=== PATIENT | female | born 1985 | race Caucasian/White ===

== ENCOUNTER → 2016-04-03 | Day surgery (SDC) | payer OTHER ==
[~2016-04-03] VITALS: Ht 165.1 cm; Wt 79.4 kg
[~2016-04-03] MED LIST: AMPICILLIN TRI500 MG PO; CELEXA20 M1 PO; CLONAZEPAM0.5 M2 PO; LABETALOL HCL100 M1 PO; OXYCODONE HCL5 M1 PO
--- NOTE | 2016-04-04 04:15 | Operative Report ---
Operative/Inv Procedure Report Surgery Date: 04/03/16 Name of Procedure: CYSTO: HYDRODISTENSION: LEFT RETROGRADE PYELO-LEFT FLEX URETEROSCOPY: LEFT STENT PLACEMENT WITH FLUOROSCOPY Pre-Operative Diagnosis: LEFT COLIC: PELVIC PAIN-INTERSTITIAL CYSTITIS FLARE Post-Operative Diagnosis: SAME Estimated Blood Loss: scant Surgeon/Emr Trainer: SIMON MEZA MD Anesthesia: laryngeal mask airway Complications: NONE Operative/Procedure Note Note: The patient was taken to the operative room and placed on the OR table in supine position. Timeout was performed in order to confirm the patient's identity, procedure, anesthesia, antibiotics, as well as any other pertinent information. After adequate anesthesia, and antibiotics, the patient was then placed lithotomy stirrups draped and prepped in the usual surgical fashion. A 22 Mexican cystoscope sheath with a 30 angle lens was inserted into the urethra and advanced into the bladder without difficulty. The bladder was noted to have the findings as discussed above. The bladder was then hydrodistended 2 with the irrigation fluid at 40 cm above the symphysis pubis. No evidence of tumor, however, pt with significant petechiae, thin-raw bladder mucosa, c/w IC. No Hunner's ulceration was noted. Both ureteral orifices had clear reflux in their orthotopic position. Terminal bleeding was noted on second distation during drainage with cystoscope. Bladder capacity was normal at 650cc. Using a ureteral open-ended stent, left retrograde pyelograms were perfomed revealing no obvious filling defects, and adequate drainage of contrast. renal pelvis with fluoroscopic guidance. Thorough calyx-oscopy and pyeloscopy confirms no tumor, and no stone fragments. At this point, the ureteroscope was then gently retracted into the right renal pelvis without difficulty. With the ureteroscope gently extracted, no stone/tumor was seen in the renal pelvis, nor ureter as well. The same procedure was performed on the left ureter and kidney finding small peteciae trauma from prior stent. The entire length of the left ureter was aslo visualize carefully on the way out with the ureteroscope, and the same findings of no significantly sized stone framents, nor tumor was seen. The 22 Mexican cystoscope sheath with a 30 angle lens was then re-serted into the bladder. The right orifice was intubated with a 0.035 Glidewire and advanced into the right renal pelvis without difficulty. Over this Glidewire a new 4.7 X 22cm Bard onlay stent was inserted. With the proximal coil seen in the right renal pelvis with fluoroscopy, and the distal coil seen in the bladder cystoscopically the Glidewire was removed and the stent remained in proper place. The same technique was used to place a similar stent in the left side without difficulty. The bladder was then drained via the cystoscope sheath, and the cystoscope was then removed. The patient tolerated the procedure well was then taken to the recovery room in satisfactory condition. Findings: RAW BLADDER SURFACE WITH EXTENSIVE VASCULARITY-PETECHIAE: LEFT URETER WITH MILD MID-STRICTURE Discharge Disposition: PACU Additional Comments: F/U 6 WEEKS FOR STENT REMOVAL. RESUME RASHAD CC: DERRICK PASCAL,SIMON
--- NOTE | 2016-04-04 16:36 | RADIOLOGY REPORT ---
EXAMINATION: XR KIDNEYS, URETER, BLADDER CLINICAL INDICATION: Left cystoscopy. COMPARISON: Report of [facility] 09/18/2015. TECHNIQUE: Imaging assistance provided during a urologic procedure. 3 images submitted. Fluoroscopy time: 0.4 minutes. FINDINGS: 3 images are submitted. The images are not labeled left or right. There is a device projecting within the left ureter. Subsequently, a wire is coiled in the region of the intrarenal collecting system. The upper aspect of a nephroureteral stent, which is not completely formed, projects over the region of the mid left kidney on the final image. No large opaque calculus IMPRESSION: Imaging assistance provided during a urologic procedure.
== END ==
LOC: STS 02:22
DX: N30.11 Interstitial cystitis (chronic) with hematuria (principal); N32.89 Other specified disorders of bladder; R10.2 Pelvic and perineal pain
CPT/HCPCS: 74000; 81025; C2617; J1885; J2250

== ENCOUNTER → 2016-07-31 | Day surgery (SDC) | payer OTHER ==
[~2016-07-31] VITALS: Ht 165.1 cm; Wt 79.4 kg
--- NOTE | 2016-07-31 19:17 | RADIOLOGY REPORT ---
EXAMINATION: XR ABDOMEN CLINICAL INDICATION: Ureteroscopy. COMPARISON: [facility] 07/28/2016. TECHNIQUE: Two AP fluoroscopic spot views of the right paraspinal region are obtained. Total fluoroscopy time is 0.1 minutes. Dose 1.55 mGy. FINDINGS: Right sided catheter demonstrated. There are surgical clips overlying the upper right renal fossa. No visible calculi on portable fluoroscopic spot view.
--- NOTE | 2016-08-05 13:42 | Operative Report ---
Operative/Inv Procedure Report Surgery Date: 07/31/16 Name of Procedure: cysto: right flexible uretroscopy with laser standby, basket extract stone. fluoroscopy Pre-Operative Diagnosis: right colic-severe Post-Operative Diagnosis: same Estimated Blood Loss: scant Surgeon/Vice Principal: SIMON MEZA MD Anesthesia: laryngeal mask airway Specimens: right renal stone. Complications: none Operative/Procedure Note Note: The patient was taken to the operating room and placed on the OR table in supine position. Timeout was performed, with the patient awake, in order to confirm correct patient, procedure, laterality, anesthesia, and other pertinent information. After adequate anesthesia and antibiotics, the patient was then placed in lithotomy stirrups, draped and prepped in the usual surgical fashion. A 22 Malay cystoscope sheath with 30 angle lens was inserted into the bladder without difficulty. Upon entering the bladder, the bladder was noted to be free of stone. Both ureteral orifices were in their orthotopic position with clear efflux bilat. A 0.035 Glidewire was inserted into the right ureteral orifice, advanced into the right renal pelvis without difficulty. . Using the gluidewire as a guide, a flexible digital ureteroscope, was rail- roaded/advanced over the gluidewire into the right kidney. Holmium/YAG laser was on standby. Pyeloscopy was performed revealing a small right mid-pole stone which was grasped with a zero-tip basket. The stone, basket and ureteroscope were then slowly and easily extracted from the right kidney and ureter. Extraction of the ureteroscope revealed no tumor, and no stone along the entire length of the ureter. The cystoscope was then reinserted into the bladder. The bladder was then drained. The patient tolerated the procedure well was then taken to the recovery room in satisfactory condition. She is to follow up in 1-2 weeks for POC/follow-up. Findings: small right renal stone. no hydro. Discharge Disposition: PACU Additional Comments: pt refused stent pre-op CC: SIMON MEZA MD
== END ==
LOC: STS 03:51
DX: N20.0 Calculus of kidney (principal); I10 Essential (primary) hypertension; F17.200 Nicotine dependence, unspecified, uncomplicated; Z87.442 Personal history of urinary calculi
CPT/HCPCS: 36415; 74000; 81025; 82355; J0131; J0690; J2250

== ENCOUNTER → 2017-04-30 | Day surgery (SDC) | payer OTHER ==
[~2017-04-30] VITALS: Ht 165.1 cm; Wt 81.6 kg
[~2017-04-30] MED LIST changes: +PERCOCET 7.5-31 EACH PO
--- NOTE | 2017-04-30 16:50 | RADIOLOGY REPORT ---
EXAMINATION: XR ABDOMEN CLINICAL INDICATION: Retrograde examination and bilateral ureteroscopy performed. COMPARISON: Renal ultrasound from 10/09/2016. TECHNIQUE: Fluoroscopic imaging of the abdomen was utilized within the operating room by Dr. Verma. Number of saved images: 8 Fluoroscopy time: 35 seconds FINDINGS: Please refer to the operative report provided by Dr. Verma. IMPRESSION: Fluoroscopic imaging equipment was used within the operating room by Dr. Verma at the time of bilateral ureteroscopy and retrograde pyelography.
--- NOTE | 2017-05-12 18:29 | Operative Report ---
Operative/Inv Procedure Report Surgery Date: 04/30/17 Name of Procedure: Cystoscopy, hydrodistention. Bilateral retrograde pyelogram. Bilateral ureteroscopy. Extraction of right renal stone. Pre-Operative Diagnosis: Bilateral renal colic, right greater than left. Interstitial cystitis Post-Operative Diagnosis: Same Estimated Blood Loss: scant Surgeon/User Experience Lead: Jim Verma MD Anesthesia: moderate sedation Complications: None Operative/Procedure Note Note: The patient was taken to the operative room and placed on the OR table in supine position. Timeout was performed in order to confirm the patient's identity, procedure, anesthesia, antibiotics, as well as any other pertinent information. After adequate anesthesia, and antibiotics, the patient was then placed lithotomy stirrups draped and prepped in the usual surgical fashion. A 22 Spanish cystoscope sheath with a 30 angle lens was inserted into the urethra and advanced into the bladder without difficulty. The bladder was then hydrodistended 2 with the irrigation fluid at 40 cm above the symphysis pubis. No evidence of tumor, nor Hunner's ulceration was noted. The patient did have significant increase in petechiae greater than 20 per field, after the first hydrodistention. Both ureteral orifices had clear reflux in their orthotopic position. No terminal bleed with drainage. Bladder capacity was normal. 22 Spanish cystoscope sheath with 30 angle lens was inserted without difficulty. Upon entering the bladder, the bladder was noted to be free of tumor, and free of stone. Using a ureteral open-ended stent, starting with the left ureter, a retrograde pyelograms was perfomed, with fluoroscopy, revealing no filling defects, with mild left hydronephrosos. The left side was noted to have quick and complete drainage of the contrast material, after the removal of the ureter open-ended stent. The same retrograde procedure was performed on the right side, again revealing no filling deffect, and brisk efflux of contrast material. As the pt has been c /o severe renal colic bilat, and demand to proceed with ureteroscopy diagnostic/ treatment of potential stone, the plan for bilateral ureterscopy proceeded. Holmium/YAG laser was on standby and turned on. The left orifice was intubated with a 0.035 gluide wire and advanced to the right renal pelvis without difficulty. Using the gluide wire, and fluoroscope, the flexible uretersocope was placed over the gluide wire and advanced to the right renal pelvis with fluoroscopic guidance. Thorough calycoscopy and pyeloscopy confirms NO stone, and NO tumor in the renal calyxes, nor renal pelvis. At this point, the ureteroscope was then gently retracted from the left renal pelvis without difficulty, and no other stone, nor any tumor, was visualized along the left ureter with direct visualization. A similar procedure was performed on the right side ureter and kidney: The 22 Spanish cystoscope sheath with 30 angle lens was re-inserted into the bladder without difficulty. Using a ureteral open-ended stent inserted into the right ureter orifice, a retrograde pyelograms was perfomed, with fluoroscopy. This revealed no filling defects, with quick and adequate drainage of the contrast, after the removal of the ureter open-ended stent. However, once again , as the pt has been c/o severe colic bilat, the plan for bilat. ureterscopy proceeded. Holmium/YAG laser was on standby. The right orifice was intubated with a 0.035 gluide wire and advanced to the right renal pelvis without difficulty. Using the gluide wire, and fluoroscope, the flexible uretersocope was rail-roaded over the gluide wire, and advanced to the right renal pelvis, with fluoroscopic guidance. Thorough calycoscopy, and pyeloscopy confirms no stone in the calyx, nor renal pelvis. The ureteroscope was then gently retracted from the right renal pelvis without difficulty. Visualizing the entire ureter, there were no additional findins. The Yag Laser on standby, was now powered down. The bladder was then drained. All sponge needle and instrument count were correct at the end of the case. The patient tolerated the procedure well was then taken to the recovery room in satisfactory condition. She is discharged home with antibiotics and pain meds. Discharge Disposition: PACU CC: Bayron PASCAL,Jim
== END ==
LOC: STS 02:20
DX: N23 Unspecified renal colic (principal); N30.10 Interstitial cystitis (chronic) without hematuria; I10 Essential (primary) hypertension; F17.200 Nicotine dependence, unspecified, uncomplicated
CPT/HCPCS: 74018; 81025; J2250

== ENCOUNTER → 2017-08-27 | Day surgery (SDC) | payer OTHER ==
[~2017-08-27] VITALS: Ht 165.1 cm; Wt 79.4 kg
--- NOTE | 2017-09-01 09:11 | Operative Report ---
Operative/Inv Procedure Report Surgery Date: 08/27/17 Name of Procedure: cystoscopy: bilat. retrograde pyelogram: hydrodistention Pre-Operative Diagnosis: hematuria: bilateral colic Post-Operative Diagnosis: same Estimated Blood Loss: scant Surgeon/Geophysical Data Technician: Jim Verma MD Anesthesia: moderate sedation Complications: none Operative/Procedure Note Note: The patient was taken to the operating room and placed on the OR table in supine position. Time out was performed, with the patient awake, to confirm correct identity, laterality, procedure, and other pertinent intra-operative information. After adequate anesthesia and antibiotics, the patient was then placed lithotomy stirrups draped and prepped in the usual surgical fashion. A 22 Occitan cystoscope sheath with a 30 angle lens was inserted without difficulty. Upon entering the bladder, the bladder was noted to be free of tumor free of stone, with both orifices in their orthotopic position. Bilateral clear efflux of urine was seen from both orifices. The left orifice was intubated with a tiger-tail ureteral catheter and retrograde pyelogram was performed; revealing no stone/tumor, and brisk drainage of contrast material. After removing the catheter from the left side, the right orifice was intubated, and retrograde pyelogram was performed on the right side. There was also no filling defect on the right side as well, with brisk efflux of contrast. Having found NO pathology on either side, the bladder was then hydrodistended 2 with the irrigation fluid at 40 cm above the symphysis pubis. No increased petechiae was noted. No Hunner's ulceration was noted. There was no terminal bleed. After completing the retrograde pyelograms bilaterally, and the hydrodistention, the bladder was then drained and the cystoscope was removed. The patient tolerated the procedure well, and was then taken to the recovery room in satisfactory condition. The patient is to be discharged home to follow up in few weeks time for post-operative follow-up. Findings: normal bladder. normal ureter/kidneys bilat. Discharge Disposition: PACU CC: Jim Verma MD
== END ==
LOC: STS 01:17
DX: N30.11 Interstitial cystitis (chronic) with hematuria (principal); R31.9 Hematuria, unspecified; N23 Unspecified renal colic; I10 Essential (primary) hypertension; F17.200 Nicotine dependence, unspecified, uncomplicated
CPT/HCPCS: 36415; 81025; 93005; 93010; J1100; J1885; J2250; J2405